=== PATIENT | female | born 1945 | race Two or more races ===

== ENCOUNTER 2025-03-18 09:02 | Outpatient (CLI) | payer OTHER | END 2025-03-18 09:07 | disposition home or self-care (01) | LOC: SONOGRAMA 09:02 | PROVIDERS: ATTEND Pathology Anatomic Pathology & Clinical Pathology | DX: D34 Benign neoplasm of thyroid gland (principal); E07.89 Other specified disorders of thyroid; E05.00 Thyrotoxicosis with diffuse goiter without thyrotoxic crisis or storm ==